=== PATIENT | female | born 1935 | race African-American/Black ===

== ENCOUNTER 2022-04-29 10:13 | Emergency (ER) | payer MEDICARE ==
[2022-04-29] MEDS ORDERED: BACITRACIN15 GM TOP (11:33)
[2022-04-29] MEDS ORDERED: CLEOCIN HCL300 MG PO (11:33)
[2022-04-29] MEDS ORDERED: BACTRIM DS TAB1 EACH PO (11:33)
== END 2022-04-29 11:49 | disposition home or self-care (01) ==
LOC: FSED 10:43
DX: L03.116 Cellulitis of left lower limb (principal); W07.XXXA Fall from chair, initial encounter; Y92.89 Other specified places as the place of occurrence of the external cause; J45.909 Unspecified asthma, uncomplicated; Z95.0 Presence of cardiac pacemaker
CPT/HCPCS: 99282